=== PATIENT | female | born 1980 | race Caucasian/White ===

== ENCOUNTER 2017-05-28 10:57 | Emergency (ER) | payer MEDICAID ==
[~2017-05-28] VITALS: Ht 167.6 cm; Wt 109.1 kg
[~2017-05-28 10:57] MED LIST: [UNRECOGNIZED DRUG - CODE] PO
[2017-05-28 10:58] VITALS: BP 168/124; PULSE 99; RESP 18; TEMP 98.8; O2SAT 99
--- NOTE | 2017-05-28 11:37 | PD ---
HPI Chief Complaint: GI Complaint Time Seen by Provider: 11:21 Travel History International Travel<30 days: No Contact w/Intl Traveler<30days: No Traveled to known affect area: No History of Present Illness HPI So 36-year-old woman who presents to the emergency department complaining of feeling poorly. She states she's been weak and sick with nausea ongoing for the past couple days, more in the upper mid abdomen, worse after eating. She is a history of feeling similar when she gets sick. She does have a little bit of congestion but not much cough cold or other symptoms. Appetite is been all the down position any breakfast this morning. Last menstrual cycle was April 24. States she had a negative test at home. She also states of increased urination. History Past Medical History Medical History: Denies Significant Hx Tetanus Vaccination: < 5 Years LMP: 05/25/17 : 3 Para: 1 Dilation and Curettage (D&C): Yes Social History Alcohol Use: No Tobacco Use: Yes (5 CIGS DAILY) Allergies-Medications (Allergen,Severity, Reaction): Coded Allergies: ketorolac (Unverified Allergy, Severe, ITCHING, 05/28/17) penicillin G (Unverified Allergy, Severe, RASH, 05/28/17) Reported Meds & Prescriptions Reported Meds & Active Scripts Active Review of Systems Except as stated in HPI: all other systems reviewed are Neg Physical Exam Narrative GENERAL: Obese 36-year-old woman, no acute distress. SKIN: Focused skin assessment warm/dry. HEAD: Atraumatic. Normocephalic. EYES: Pupils equal and round. No scleral icterus. No injection or drainage. ENT: No nasal bleeding or discharge. Mucous membranes pink and moist. TMs normal. Throat is normal. NECK: Trachea midline. No JVD. No adenopathy. CARDIOVASCULAR: Regular rate and rhythm. No murmur appreciated. RESPIRATORY: No accessory muscle use. Clear to auscultation. Breath sounds equal bilaterally. GASTROINTESTINAL: Abdomen is obese soft, mild to moderate epigastric tenderness , some right upper quadrant tenderness as well, negative Mendoza's. MUSCULOSKELETAL: No obvious deformities. No clubbing. No cyanosis. No edema. NEUROLOGICAL: Awake and alert. No obvious cranial nerve deficits. Motor grossly within normal limits. Normal speech. PSYCHIATRIC: Appropriate mood and affect; insight and judgment normal. Data Data Last Documented VS Vital Signs Date Time Temp Pulse Resp B/P (MAP) Pulse Ox O2 Delivery O2 Flow Rate FiO2 05/28/17 10:58 98.8 99 18 168/124 (139) 99 Room Air Orders Orders Complete Blood Count With Diff (05/28/17 11:35) Comprehensive Metabolic Panel (05/28/17 11:35) Lipase (05/28/17 11:35) Urinalysis - C+S If Indicated (05/28/17 11:35) Us Abdomen Gallbladder (05/28/17 ) Iv Access Insert/Monitor (05/28/17 11:35) Ecg Monitoring (05/28/17 11:35) Oximetry (05/28/17 11:35) NPO (05/28/17 11:35) Ondansetron Inj (Zofran Inj) (05/28/17 11:45) Sodium Chloride 0.9% Flush (Ns Flush) (05/28/17 11:45) Ed Urine Pregnancytest Poc (05/28/17 11:35) MDM Medical Decision Making Medical Screen Exam Complete: Yes Emergency Medical Condition: Yes Differential Diagnosis Viral syndrome, gastritis, cholecystitis, other Narrative Course Medical decision making This is a 36-year-old woman presents to the emergency department complaining of epigastric abdominal pain. Looks well. Is probably a viral syndrome but she is obese, is likely a risk for gallbladder problems, and has some right upper quadrant tenderness. We'll check labs, urine, ultrasound, likely discharge for Zofran and supportive treatment. Shay Victoria MD May 28, 2017 11:37
[2017-05-28] MEDS ORDERED: ONDANSETRON HCL 4 MG/2 ML VIAL IVP ONE (11:45)
[2017-05-28] MEDS ORDERED: SODIUM CHLORIDE 0.9% FLUSH 10 ML FLUSH IV FLUSH PRN (11:45)
--- NOTE | 2017-05-28 12:12 | RADRPT ---
EXAM DATE/TIME: 05/28/2017 11:46 [facility] COMPARISON: No previous studies available for comparison. INDICATIONS : Nausea and vomiting. MEDICAL HISTORY : Hypertension. Kidney stones. SURGICAL HISTORY : Dilation and curettage. ENCOUNTER: Initial ACUITY: 1 day PAIN SCORE: 4/10 LOCATION: Right upper quadrant MEASUREMENTS: LIVER: 20.2 cm length COMMON DUCT: 6 mm RIGHT KIDNEY: 11.7 x 5.7 x 4.8 cm FINDINGS: LIVER: The liver is enlarged and shows diffuse increased echogenicity consistent with fatty infiltration. No focal hepatic mass is noted. No biliary ductal dilatation is noted. There is hepatopetal flow within the portal vein. COMMON DUCT: No intraluminal mass or stone visualized. GALLBLADDER: Contains no stones, demonstrates no wall thickening or pericholecystic fluid. PANCREAS: The visualized portions are within normal limits. RIGHT KIDNEY: No evidence of hydronephrosis, stone, or mass. CONCLUSION: Enlarged fatty liver. Otherwise unremarkable sonogram of the abdomen. Stephen Solomon MD on May 28, 2017 at 12:09 Board Certified Radiologist. This report was verified electronically.
[2017-05-28 12:15] LABS: BLOOD, URINE NEG (NEG); COMMENT (UR) CULT NOT INDICATED; CULTURE IF INDICATED CULT NOT INDICATED; GLUCOSE,URINE NEG (NEG); KETONE, URINE TRACE mg/dL (NEG); MUCUS URINE FEW /lpf (OCC); NITRITE,URINE NEG (NEG); PH, URINE 7.5 (5.0-8.5); SQUAMOUS EPITHELIAL CELL URINE 1 /hpf (0-5); URINE COLOR YELLOW (YELLW/STRAW)
[2017-05-28 12:36] LABS: AUTOMATED NEUTROPHIL # 7.8 TH/MM3 (1.8-7.7); BASOPHIL % 0.4 % (0.0-2.0); EOSINOPHIL # 0.1 TH/MM3 (0-0.4); EOSINOPHIL % 1.2 % (0.0-4.0); HEMATOCRIT 40.8 % (35.0-46.0); HEMO FLAGS DIFF FINAL; LYMPHOCYTE # 1.8 TH/MM3 (1.0-4.8); MEAN CELL VOLUME 83.8 FL (80.0-100.0); MEAN CORPUSCULAR HEMOGLOBIN 28.2 PG (27.0-34.0); MEAN CORPUSCULAR HGB CONC 33.7 % (32.0-36.0); MONO % 6.8 % (0.0-8.0); NEUT % 74.6 % (16.0-70.0); PLATELET COUNT 262 TH/MM3 (150-450); RED BLOOD COUNT 4.87 MIL/MM3 (4.00-5.30); RED CELL DISTRIBUTION WIDTH 14.6 % (11.6-17.2); WHITE BLOOD COUNT 10.5 TH/MM3 (4.0-11.0)
[2017-05-28 12:56] LABS: ANION GAP 8 MEQ/L (5-15); AST (GOT) 14 U/L (15-37); BICARBONATE 23.3 MEQ/L (21.0-32.0); BLOOD UREA NITROGEN 8 MG/DL (7-18); CHLORIDE 105 MEQ/L (98-107); GLOMERULAR FILTRATION RATE 113 ML/MIN (>89); POTASSIUM 3.6 MEQ/L (3.5-5.1); SODIUM (NA) 136 MEQ/L (136-145)
[2017-05-28 12:58] LABS: ALT (GPT) 26 U/L (10-53)
[2017-05-28 13:00] LABS: ALKALINE PHOSPHATASE 115 U/L (45-117); TOTAL BILIRUBIN ADULT 0.5 MG/DL (0.2-1.0)
[2017-05-28] MEDS ORDERED: OMEP40CA2 PO (13:12)
--- NOTE | 2017-05-28 13:20 | PD ---
Physical Exam Date Seen by Provider: May 28, 2017 Time Seen by Provider: 13:14 Narrative GENERAL: Well-nourished, obese female in no acute distress. Afebrile. Ambulatory. SKIN: Focused skin assessment warm/dry. HEAD: Normocephalic. EYES: No scleral icterus. No injection or drainage. NECK: Supple, trachea midline. No JVD or lymphadenopathy. CARDIOVASCULAR: Regular rate and rhythm without murmurs, gallops, or rubs. RESPIRATORY: Breath sounds equal bilaterally. No accessory muscle use. GASTROINTESTINAL: Abdomen soft, non-tender, nondistended. No peritoneal signs. Data Data Last Documented VS Vital Signs Date Time Temp Pulse Resp B/P (MAP) Pulse Ox O2 Delivery O2 Flow Rate FiO2 05/28/17 10:58 98.8 99 18 168/124 (139) 99 Room Air Orders Orders Complete Blood Count With Diff (05/28/17 11:35) Comprehensive Metabolic Panel (05/28/17 11:35) Lipase (05/28/17 11:35) Urinalysis - C+S If Indicated (05/28/17 11:35) Us Abdomen Gallbladder (05/28/17 ) Iv Access Insert/Monitor (05/28/17 11:35) Ecg Monitoring (05/28/17 11:35) Oximetry (05/28/17 11:35) NPO (05/28/17 11:35) Ondansetron Inj (Zofran Inj) (05/28/17 11:45) Sodium Chloride 0.9% Flush (Ns Flush) (05/28/17 11:45) Ed Urine Pregnancytest Poc (05/28/17 11:35) Labs Laboratory Tests Test 05/28/17 11:57 05/28/17 12:10 Urine Color YELLOW Urine Turbidity CLEAR Urine pH 7.5 Urine Specific [place] 1.018 Urine Protein TRACE mg/dL Urine Glucose (UA) NEG mg/dL Urine Ketones TRACE mg/dL Urine Occult Blood NEG Urine Nitrite NEG Urine Bilirubin NEG Urine Urobilinogen LESS THAN 2.0 MG/DL Urine Leukocyte Esterase NEG Urine RBC 1 /hpf Urine WBC 1 /hpf Urine Squamous Epithelial Cells 1 /hpf Urine Mucus FEW /lpf Microscopic Urinalysis Comment CULT NOT INDICATED White Blood Count 10.5 TH/MM3 Red Blood Count 4.87 MIL/MM3 Hemoglobin 13.8 GM/DL Hematocrit 40.8 % Mean Corpuscular Volume 83.8 FL Mean Corpuscular Hemoglobin 28.2 PG Mean Corpuscular Hemoglobin Concent 33.7 % Red Cell Distribution Width 14.6 % Platelet Count 262 TH/MM3 Mean Platelet Volume 9.6 FL Neutrophils (%) (Auto) 74.6 % Lymphocytes (%) (Auto) 17.0 % Monocytes (%) (Auto) 6.8 % Eosinophils (%) (Auto) 1.2 % Basophils (%) (Auto) 0.4 % Neutrophils # (Auto) 7.8 TH/MM3 Lymphocytes # (Auto) 1.8 TH/MM3 Monocytes # (Auto) 0.7 TH/MM3 Eosinophils # (Auto) 0.1 TH/MM3 Basophils # (Auto) 0.0 TH/MM3 CBC Comment DIFF FINAL Differential Comment Blood Urea Nitrogen 8 MG/DL Creatinine 0.60 MG/DL Random Glucose 107 MG/DL Total Protein 7.6 GM/DL Albumin 3.5 GM/DL Calcium Level 9.0 MG/DL Alkaline Phosphatase 115 U/L Aspartate Amino Transf (AST/SGOT) 14 U/L Alanine Aminotransferase (ALT/SGPT) 26 U/L Total Bilirubin 0.5 MG/DL Sodium Level 136 MEQ/L Potassium Level 3.6 MEQ/L Chloride Level 105 MEQ/L Carbon Dioxide Level 23.3 MEQ/L Anion Gap 8 MEQ/L Estimat Glomerular Filtration Rate 113 ML/MIN Lipase 137 U/L MDM Medical Record Reviewed: Yes Supervised Visit with NOE: No Narrative Course Patient signed out to me pending lab and imaging results. 36-year-old female presents to the emergency room for evaluation of nausea, indigestion, fatigue, and malaise for the past few days. Associated with eating. Patient is concerned she has gallbladder issues because of family history. She is also requesting a test. Abdomen soft, nontender. Vital signs stable. Patient is well-appearing. ED test is negative. CBC, CMP, and UA are unremarkable. Some of the ladder shows fatty liver, patient made aware. She will be tried on omeprazole and told to follow-up with a primary care physician for outpatient endoscopy if symptoms persist. She understands and agrees to plan. Diagnosis Primary Impression: GERD (gastroesophageal reflux disease) Qualified Codes: K21.9 - Gastro-esophageal reflux disease without esophagitis Referrals: Primary Care Physician Additional Instruction: Rest and drink plenty of fluids. Take omeprazole as directed, until gone. Follow-up with a primary care physician. Return to the emergency room for worsening symptoms. Med/Other Pt SpecificInfo: Prescription(s) given Scripts Omeprazole (Omeprazole) 40 Mg Cap 40 MG PO DAILY, #30 CAP 0 Refills Prov: Shay Victoria MD 05/28/17 Disposition: 01 DISCHARGE HOME Condition: Stable Lisa Ley May 28, 2017 13:20
== END 2017-05-28 13:42 | disposition home or self-care (01) ==
LOC: NEPD 10:57
DX: K21.9 Gastro-esophageal reflux disease without esophagitis (principal); R11.0 Nausea; R53.1 Weakness; K76.0 Fatty (change of) liver, not elsewhere classified; F17.210 Nicotine dependence, cigarettes, uncomplicated; Z88.0 Allergy status to penicillin; Z88.8 Allergy status to other drugs, medicaments and biological substances
CPT/HCPCS: 76705; 80053; 81001; 83690; 84703; 85025; 96374; 99284; J2405

== ENCOUNTER 2017-10-21 10:21 | Emergency (ER) | payer MEDICAID ==
[~2017-10-21] VITALS: Ht 167.6 cm; Wt 113.5 kg
[~2017-10-21 10:21] MED LIST changes: +OMEP40CA2 PO; -[UNRECOGNIZED DRUG - CODE] PO
[2017-10-21 10:34] VITALS: BP 174/92; PULSE 79; RESP 16; TEMP 97.5; O2SAT 98
--- NOTE | 2017-10-21 12:03 | PD ---
HPI Chief Complaint: Edema Time Seen by Provider: 10:47 Travel History International Travel<30 days: No Contact w/Intl Traveler<30days: No Traveled to known affect area: No History of Present Illness HPI 37-year-old female presents to the emergency department complaint of bilateral leg swelling for the last 4-5 days. Reports numbness and tingling when her legs are down and otherwise denies constant paresthesias or loss of sensation. Denies leg or foot edema at this time. Reports shooting pain in her ankles with walking. Says she works [employer] and does a lot of standing. Denies chest pain, shortness of breath, history of DVT/PE. Denies fever, vomiting. Says her legs feel heavy. Symptoms are mild to moderate in severity. Has taken Aleve for symptom management. Symptoms are worse with walking, sitting, and standing for prolonged amount of times. Better at rest. No primary care provider. History of diet-controlled diabetes mellitus many years ago. Allergies to penicillin and Toradol. Has no other medical complaints. No other modifying factors or associated signs and symptoms. PFSH Past Medical History Hx Anticoagulant Therapy: No Cardiovascular Problems: No Chemotherapy: No Cerebrovascular Accident: No Diabetes: Yes ("diet controlled") Patient Takes Glucophage: No Diminished Hearing: No Hypertension: Yes Kidney Stones: Yes (right side) Respiratory: No Immunizations Current: No ?: Not LMP: 10/10/17 : 3 Para: 1 Miscarriage: 1 : 1 Dilation and Curettage (D&C): Yes Past Surgical History Gynecologic Surgery: Yes (D & C) Hysterectomy: No Social History Alcohol Use: No Tobacco Use: Yes (1/2 ppd DAILY) Substance Use: No Allergies-Medications (Allergen,Severity, Reaction): Coded Allergies: ketorolac (Unverified Allergy, Severe, ITCHING, 05/28/17) penicillin G (Unverified Allergy, Severe, RASH, 05/28/17) Reported Meds & Prescriptions Reported Meds & Active Scripts Active Lisinopril 10 Mg Tab 10 Mg PO DAILY Review of Systems Except as stated in HPI: all other systems reviewed are Neg Physical Exam Narrative GENERAL: Well-nourished, well-developed patient, in no acute distress SKIN: Warm and dry. HEAD: Atraumatic. Normocephalic. EYES: Pupils equal and round. No scleral icterus. No injection or drainage. ENT: Mucosa pink and moist. Airway patent. NECK: Trachea midline. CARDIOVASCULAR: Regular rate. RESPIRATORY: No accessory muscle use. GASTROINTESTINAL: Obese. MUSCULOSKELETAL: Bilateral lower extremities are supple and nontender with 2+ pedal pulses and sensory intact without erythema or edema; no pitting edema. No ankle tenderness on palpation. No calf tenderness on palpation. No obvious deformities. No clubbing. No cyanosis. No edema. NEUROLOGICAL: Awake and alert. Oriented 3. No obvious cranial nerve deficits. Motor grossly within normal limits. Normal speech. PSYCHIATRIC: Appropriate mood and affect; insight and judgment normal. Data Data Last Documented VS Vital Signs Date Time Temp Pulse Resp B/P (MAP) Pulse Ox O2 Delivery O2 Flow Rate FiO2 10/21/17 12:44 123/69 (87) 10/21/17 10:34 97.5 79 16 98 Orders Orders Basic Metabolic Panel (Bmp) (10/21/17 11:20) Ed Discharge Order (10/21/17 12:32) Labs Laboratory Tests Test 10/21/17 11:40 Blood Urea Nitrogen 7 MG/DL Creatinine 0.51 MG/DL Random Glucose 120 MG/DL Calcium Level 8.5 MG/DL Sodium Level 141 MEQ/L Potassium Level 4.0 MEQ/L Chloride Level 110 MEQ/L Carbon Dioxide Level 25.4 MEQ/L Anion Gap 6 MEQ/L Estimat Glomerular Filtration Rate 136 ML/MIN MDM Medical Decision Making Medical Screen Exam Complete: Yes Emergency Medical Condition: Yes Medical Record Reviewed: Yes Differential Diagnosis Leg edema, hypertension, medical clearance Narrative Course 37-year-old female with complaint of bilateral leg edema and foot edema for the past 4 days, but is not apparent at this time on physical exam. Blood pressure is elevated 174/92 in the ER. She denies history of hypertension. I discussed the patient with Dr. Davis and plan of care discussed. BMP will be ordered to evaluate kidney function and patient will be started on lisinopril If kidney function is normal. BMP ordered. 1228: BMP unremarkable. Repeat blood pressure 123/69. I do not feel comfortable prescribing blood pressure medications with a blood pressure reading within normal limits. patient provided information for [facility] for follow-up. Instructed patient to follow up with primary care provider. Patient verbalizes understanding and agreement with treatment plan. Patient is medically cleared and stable for discharge. Discussed reasons to return to the emergency department. Patient agrees with treatment plan. The patients vital signs are stable and the patient is stable for outpatient follow- up and treatment. Patient discharged home, stable and in no acute distress. Diagnosis Primary Impression: Bilateral lower extremity edema Additional Impression: High blood pressure Qualified Codes: I10 - Essential (primary) hypertension Referrals: [facility] Primary Care Physician Patient Instructions: General Instructions, Hypertension (ED), Leg Edema (ED) Departure Forms: Tests/Procedures, Work Release Enter return to work date: Oct 22, 2017 Additional Instructions: Tylenol or ibuprofen as directed and as needed for pain and inflammation Monitor blood pressure readings frequently and log in a diary; take the diary to her next primary care provider appointment Wear compression stocking when standing or walking for prolonged amount of times Elevated extremities to decrease swelling Follow-up with your primary care provider Follow-up with [facility] Return to the emergency department immediately with worsening of symptoms Med/Other Pt SpecificInfo: No Change to Meds, No Meds Exist/No RX given Disposition: 01 DISCHARGE HOME Condition: Stable Agustina Crump Oct 21, 2017 12:03
[2017-10-21] MEDS ORDERED: LISI10TA3 PO (12:21)
[2017-10-21 12:25] LABS: BICARBONATE 25.4 MEQ/L (21.0-32.0); CALCIUM 8.5 MG/DL (8.5-10.1); CREATININE 0.51 MG/DL (0.50-1.00)
[2017-10-21 12:44] VITALS: BP 123/69
[2017-10-21] MEDS ORDERED: ACETAMINOPHEN 325 MG TAB PO ONE (13:00)
== END 2017-10-21 13:33 | disposition home or self-care (01) ==
LOC: NEPD 10:21
DX: R60.0 Localized edema (principal); I10 Essential (primary) hypertension; E11.9 Type 2 diabetes mellitus without complications; F17.210 Nicotine dependence, cigarettes, uncomplicated; Z88.0 Allergy status to penicillin; Z87.442 Personal history of urinary calculi
CPT/HCPCS: 80048; 99283

== ENCOUNTER 2017-11-05 06:42 | Emergency (ER) | payer MEDICAID ==
[~2017-11-05] VITALS: Ht 162.6 cm; Wt 100.0 kg
[2017-11-05 07:07] VITALS: BP 141/85; PULSE 83; RESP 16; TEMP 98.4; O2SAT 98
[2017-11-05] MEDS ORDERED: CLIN150 PO (07:24)
[2017-11-05] MEDS ORDERED: ZOFR4TAB3 SL (07:24)
--- NOTE | 2017-11-05 07:25 | PD ---
HPI Chief Complaint: Oral / Dental Pain or Problem Time Seen by Provider: 07:15 Travel History International Travel<30 days: No Contact w/Intl Traveler<30days: No Traveled to known affect area: No History of Present Illness HPI The patient is a 37-year-old female who presents to the emergency department for dental pain. The patient is a 4 day history of left upper dental pain with to sensitivity to heat, cold, and mastication. The pain radiates up to the left ear. Patient states the pain is causing a headache with mild nausea. The patient also notes a few episodes of diarrhea, however, states there have been several individuals at work sick with vomiting and diarrhea. She has been able to tolerate oral intake. She denies any fever or body aches. She denies any accompanying abdominal pain. Symptoms are mild to moderate. The patient states she does not have insurance, therefore, was unable to be evaluated by a dentist. PFSH Past Medical History Hx Anticoagulant Therapy: No Cardiovascular Problems: No Chemotherapy: No Cerebrovascular Accident: No Diabetes: Yes ("diet controlled") Diminished Hearing: No Hypertension: Yes Kidney Stones: Yes (right side) Respiratory: No Immunizations Current: No ?: Not LMP: 10/2017 : 3 Para: 1 Miscarriage: 1 : 1 Dilation and Curettage (D&C): Yes Past Surgical History Gynecologic Surgery: Yes (D & C) Hysterectomy: No Social History Alcohol Use: No Tobacco Use: Yes (1/2 ppd DAILY) Substance Use: No Allergies-Medications (Allergen,Severity, Reaction): Coded Allergies: ketorolac (Unverified Allergy, Severe, ITCHING, 11/05/17) penicillin G (Unverified Allergy, Severe, RASH, 11/05/17) Reported Meds & Prescriptions Reported Meds & Active Scripts Active Review of Systems Except as stated in HPI: all other systems reviewed are Neg General / Constitutional: No: Fever HENT: Positive: Dental Difficulties Gastrointestinal: Positive: Nausea, Diarrhea Musculoskeletal: No: Myalgias Physical Exam Narrative GENERAL: Awake, alert, nontoxic-appearing 37-year-old female who appears her stated age and is in no acute respiratory distress. SKIN: Focused skin assessment warm/dry. HEAD: Atraumatic. Normocephalic. EYES: Pupils equal and round. No scleral icterus. No injection or drainage. ENT: No nasal bleeding or discharge. Mucous membranes pink and moist. Inspection of the dentition reveals a partially avulsed left upper molar consistent with tooth #14 which is tender palpation. No palpable gingival abscess. TMs are translucent. EACs are clear. NECK: Trachea midline. No JVD. CARDIOVASCULAR: Regular rate and rhythm. No murmur appreciated. RESPIRATORY: No accessory muscle use. Clear to auscultation. Breath sounds equal bilaterally. GASTROINTESTINAL: Abdomen soft, non-tender, nondistended. No rebound tenderness. MUSCULOSKELETAL: No obvious deformities. No clubbing. No cyanosis. No edema. NEUROLOGICAL: Awake and alert. No obvious cranial nerve deficits. Motor grossly within normal limits. Normal speech. PSYCHIATRIC: Appropriate mood and affect; insight and judgment normal. Data Data Last Documented VS Vital Signs Date Time Temp Pulse Resp B/P (MAP) Pulse Ox O2 Delivery O2 Flow Rate FiO2 11/05/17 07:07 98.4 83 16 141/85 (103) 98 Orders Orders Clindamycin (Cleocin) (11/05/17 07:30) Ondansetron Odt (Zofran Odt) (11/05/17 07:30) [facility] Medical Decision Making Medical Screen Exam Complete: Yes Emergency Medical Condition: Yes Medical Record Reviewed: Yes Differential Diagnosis Differential diagnosis includes odontalgia, dental abscess, ANUG, gingivitis, influenza, viral syndrome, gastroenteritis, nausea. Narrative Course The patient is allergic to penicillin G with a rash, therefore, will be placed on clindamycin. She was administered her first dose of clindamycin and Zofran in the emergency department. She will be provided a work excuse for today and dental follow-up information. She is advised to have a clear liquid diet and advance as tolerated. [id number] Imodium as needed for diarrhea. Diagnosis Primary Impression: Odontalgia Patient Instructions: Narcotic given in the ED Additional Instructions: Medications as directed. Please provide the patient dental information. Over- the-counter Imodium as needed. Work excuse for today. Clear liquid diet and advance as tolerated. Med/Other Pt SpecificInfo: Prescription(s) given Scripts Clindamycin (Cleocin) 150 Mg Cap 150 MG PO Q6H for Infection for 10 Days, #40 CAP 0 Refills Prov: Donald Davis MD 11/05/17 Ondansetron Odt (Zofran Odt) 4 Mg Tab 4 MG SL Q6HR Y for Nausea/Vomiting, #7 TAB 0 Refills Prov: Donald Davis MD 11/05/17 Disposition: 01 DISCHARGE HOME Condition: Stable Donald Davis MD November 05, 2017 07:25
[2017-11-05] MEDS ORDERED: CLINDAMYCIN 150 MG CAP PO ONE (07:30)
[2017-11-05] MEDS ORDERED: ONDANSETRON ODT 4 MG TAB PO ONE (07:30)
== END 2017-11-05 07:47 | disposition home or self-care (01) ==
LOC: NEPC 06:42
DX: K08.89 Other specified disorders of teeth and supporting structures (principal); R19.7 Diarrhea, unspecified; F17.200 Nicotine dependence, unspecified, uncomplicated
CPT/HCPCS: 99283

== ENCOUNTER 2017-11-29 12:40 | Emergency (ER) | payer MEDICAID ==
[~2017-11-29] VITALS: Ht 167.6 cm; Wt 105.0 kg
[~2017-11-29 12:40] MED LIST changes: +CLIN150 PO; -OMEP40CA2 PO; +ZOFR4TAB3 SL
[2017-11-29 13:27] VITALS: BP 105/62; PULSE 80; RESP 17; TEMP 97.9; O2SAT 99
[2017-11-29 14:38] LABS: BACTERIA, URINE OCC /hpf; BILIRUBIN, URINE NEG (NEG); BLOOD, URINE NEG (NEG); GLUCOSE,URINE 300 mg/dL (NEG); KETONE, URINE TRACE mg/dL (NEG); MUCUS URINE MOD /lpf (OCC); NITRITE,URINE NEG (NEG); PH, URINE 5.5 (5.0-8.5); SQUAMOUS EPITHELIAL CELL URINE 2 /hpf (0-5); URINE COLOR YELLOW (YELLW/STRAW); URINE LEUKOCYTE ESTERASE NEG (NEG)
[2017-11-29 14:43] LABS: AUTOMATED NEUTROPHIL # 7.3 TH/MM3 (1.8-7.7); BASOPHIL % 0.4 % (0.0-2.0); EOSINOPHIL # 0.2 TH/MM3 (0-0.4); EOSINOPHIL % 1.6 % (0.0-4.0); HEMATOCRIT 38.9 % (35.0-46.0); HEMOGLOBIN 12.7 GM/DL (11.6-15.3); LYMPH % 17.1 % (9.0-44.0); LYMPHOCYTE # 1.7 TH/MM3 (1.0-4.8); MEAN CELL VOLUME 82.9 FL (80.0-100.0); MEAN CORPUSCULAR HGB CONC 32.5 % (32.0-36.0); MEAN PLATELET VOLUME 9.5 FL (7.0-11.0); MONO % 5.8 % (0.0-8.0); MONOCYTE # 0.6 TH/MM3 (0-0.9); NEUT % 75.1 % (16.0-70.0); PLATELET COUNT 259 TH/MM3 (150-450); RED BLOOD COUNT 4.69 MIL/MM3 (4.00-5.30); RED CELL DISTRIBUTION WIDTH 15.2 % (11.6-17.2); WHITE BLOOD COUNT 9.7 TH/MM3 (4.0-11.0)
[2017-11-29 15:02] LABS: ALBUMIN 3.2 GM/DL (3.4-5.0); AST (GOT) 13 U/L (15-37); BICARBONATE 24.9 MEQ/L (21.0-32.0); BLOOD UREA NITROGEN 9 MG/DL (7-18); CALCIUM 8.3 MG/DL (8.5-10.1); CHLORIDE 106 MEQ/L (98-107); CREATININE 0.74 MG/DL (0.50-1.00); GLOMERULAR FILTRATION RATE 88 ML/MIN (>89); GLUCOSE,RANDOM 204 MG/DL (74-106); SODIUM (NA) 141 MEQ/L (136-145)
[2017-11-29 15:05] LABS: ALKALINE PHOSPHATASE 109 U/L (45-117); ALT (GPT) 25 U/L (10-53); TOTAL BILIRUBIN ADULT 0.3 MG/DL (0.2-1.0); TOTAL PROTEIN 6.9 GM/DL (6.4-8.2)
[2017-11-29] MEDS ORDERED: ZOFR4TAB PO (16:21)
--- NOTE | 2017-11-29 16:27 | PD ---
HPI Chief Complaint: GI Complaint Time Seen by Provider: 16:14 Travel History International Travel<30 days: No Contact w/Intl Traveler<30days: No Traveled to known affect area: No History of Present Illness HPI 37-year-old female presents to the emergency room for evaluation of subjective fevers, chills, and nausea for the past 2 days. Patient states symptoms really started last night. She denies any actual vomiting or diarrhea. She occasionally gets constipated. Denies any abdominal pain. States sometimes she will burp and spit up in her mouth. She denies any sick contacts. She has not been taking anything [id number]-pot-bcevyua for symptoms. She denies dysuria, urgency, frequency, flank pain, vaginal discharge. She does not know whether or not she is . PFSH Past Medical History Hx Anticoagulant Therapy: No Cardiovascular Problems: No Chemotherapy: No Cerebrovascular Accident: No Diabetes: Yes ("diet controlled") Patient Takes Glucophage: No Diminished Hearing: No Hypertension: Yes Kidney Stones: Yes (right side) Respiratory: No Immunizations Current: No ?: Not : 3 Para: 1 Miscarriage: 1 : 1 Dilation and Curettage (D&C): Yes Past Surgical History Gynecologic Surgery: Yes (D & C) Hysterectomy: No Social History Alcohol Use: No Tobacco Use: Yes (1/2 ppd DAILY) Substance Use: No Allergies-Medications (Allergen,Severity, Reaction): Coded Allergies: ketorolac (Unverified Allergy, Severe, ITCHING, 11/05/17) penicillin G (Unverified Allergy, Severe, RASH, 11/05/17) Reported Meds & Prescriptions Reported Meds & Active Scripts Active Zofran (Ondansetron HCl) 4 Mg Tab 4 Mg PO Q6HR PRN Cleocin (Clindamycin HCl) 150 Mg Cap 150 Mg PO Q6H 10 Days Zofran Odt (Ondansetron Odt) 4 Mg Tab 4 Mg SL Q6HR PRN Review of Systems Except as stated in HPI: all other systems reviewed are Neg Physical Exam Narrative GENERAL: Well-nourished, well-developed female no acute distress. Afebrile. Ambulatory SKIN: Focused skin assessment warm/dry. HEAD: Normocephalic. EYES: No scleral icterus. No injection or drainage. NECK: Supple, trachea midline. No JVD or lymphadenopathy. CARDIOVASCULAR: Regular rate and rhythm without murmurs, gallops, or rubs. RESPIRATORY: Breath sounds equal bilaterally. No accessory muscle use. GASTROINTESTINAL: Abdomen soft, non-tender, nondistended. No rebound tenderness or guarding. Data Data Last Documented VS Vital Signs Date Time Temp Pulse Resp B/P (MAP) Pulse Ox O2 Delivery O2 Flow Rate FiO2 11/29/17 13:27 97.9 80 17 105/62 (76) 99 Room Air Orders Orders Ed Urine Pregnancytest Poc (11/29/17 13:10) Complete Blood Count With Diff (11/29/17 13:28) Comprehensive Metabolic Panel (11/29/17 13:28) Urinalysis - C+S If Indicated (11/29/17 13:28) Lipase (11/29/17 13:28) Labs Laboratory Tests Test 11/29/17 13:30 11/29/17 13:55 Urine Color YELLOW Urine Turbidity CLEAR Urine pH 5.5 Urine Specific [place] 1.027 Urine Protein TRACE mg/dL Urine Glucose (UA) 300 mg/dL Urine Ketones TRACE mg/dL Urine Occult Blood NEG Urine Nitrite NEG Urine Bilirubin NEG Urine Urobilinogen LESS THAN 2.0 MG/DL Urine Leukocyte Esterase NEG Urine RBC LESS THAN 1 /hpf Urine WBC LESS THAN 1 /hpf Urine Squamous Epithelial Cells 2 /hpf Urine Bacteria OCC /hpf Urine Mucus MOD /lpf Microscopic Urinalysis Comment CULT NOT INDICATED White Blood Count 9.7 TH/MM3 Red Blood Count 4.69 MIL/MM3 Hemoglobin 12.7 GM/DL Hematocrit 38.9 % Mean Corpuscular Volume 82.9 FL Mean Corpuscular Hemoglobin 27.0 PG Mean Corpuscular Hemoglobin Concent 32.5 % Red Cell Distribution Width 15.2 % Platelet Count 259 TH/MM3 Mean Platelet Volume 9.5 FL Neutrophils (%) (Auto) 75.1 % Lymphocytes (%) (Auto) 17.1 % Monocytes (%) (Auto) 5.8 % Eosinophils (%) (Auto) 1.6 % Basophils (%) (Auto) 0.4 % Neutrophils # (Auto) 7.3 TH/MM3 Lymphocytes # (Auto) 1.7 TH/MM3 Monocytes # (Auto) 0.6 TH/MM3 Eosinophils # (Auto) 0.2 TH/MM3 Basophils # (Auto) 0.0 TH/MM3 CBC Comment DIFF FINAL Differential Comment Blood Urea Nitrogen 9 MG/DL Creatinine 0.74 MG/DL Random Glucose 204 MG/DL Total Protein 6.9 GM/DL Albumin 3.2 GM/DL Calcium Level 8.3 MG/DL Alkaline Phosphatase 109 U/L Aspartate Amino Transf (AST/SGOT) 13 U/L Alanine Aminotransferase (ALT/SGPT) 25 U/L Total Bilirubin 0.3 MG/DL Sodium Level 141 MEQ/L Potassium Level 3.6 MEQ/L Chloride Level 106 MEQ/L Carbon Dioxide Level 24.9 MEQ/L Anion Gap 10 MEQ/L Estimat Glomerular Filtration Rate 88 ML/MIN Lipase 161 U/L [facility] Medical Decision Making Medical Screen Exam Complete: Yes Emergency Medical Condition: Yes Medical Record Reviewed: Yes Differential Diagnosis Gastroenteritis, gastritis, pancreatitis, , GERD Narrative Course 37-year-old female presents to the emergency room for evaluation of acid reflux , nausea, and chills for the past 2 days. No other complaints. No abdominal pain or diarrhea. Patient is afebrile well-appearing in the emergency room. Vital signs stable. Abdomen soft, nontender. CBC and CMP are essentially unremarkable. Lipase is negative. test is negative. UA shows no evidence of infection. Patient is requesting food in the ED. She is also requesting a work note. She likely has GERD or gastroenteritis. Patient was told to continue [id number] treatments and stay hydrated. Told to return as needed for worsening symptoms. She understands and agrees to plan. Diagnosis Primary Impression: GERD (gastroesophageal reflux disease) Qualified Codes: K21.9 - Gastro-esophageal reflux disease without esophagitis Referrals: Primary Care Physician Departure Forms: Tests/Procedures, Work Release Enter return to work date: December 02, 2017 Additional Instructions: Take [id number] omeprazole as directed for 1 month. Zofran as directed, as needed for nausea. Eat prunes or pears for constipation. If this does not work, take over-the- counter stool softeners. Follow-up with primary care physician. Return to the emergency room for worsening symptoms per Scripts Ondansetron (Zofran) 4 Mg Tab 4 MG PO Q6HR Y for NAUSEA OR VOMITING, #15 TAB 0 Refills Prov: Key Plascencia MD 11/29/17 Disposition: 01 DISCHARGE HOME Condition: Stable Lisa Ley November 29, 2017 16:27
== END 2017-11-29 16:39 | disposition home or self-care (01) ==
LOC: NEPD 12:40
DX: K21.9 Gastro-esophageal reflux disease without esophagitis (principal); F17.200 Nicotine dependence, unspecified, uncomplicated
CPT/HCPCS: 80053; 81001; 83690; 84703; 85025; 99283